=== PATIENT | male | born 1990 | race Caucasian/White ===

== ENCOUNTER → 2021-08-08 09:20 | Outpatient (CLI) | payer OTHER, SELFPAY ==
[2021-08-08 20:38] LABS: COVID19 - ORCAS (NP or Nasal) POSITIVE (Negative)
== END ==
PROVIDERS: PCP Physician Assistant; Referring Provider Family Medicine; Visit Provider Family Medicine
DX: U07.1 COVID-19 (principal); Z20.822 Contact with and (suspected) exposure to COVID-19
CPT/HCPCS: U0003

== ENCOUNTER 2021-12-26 13:58 | Emergency (ER) | payer OTHER, SELFPAY ==
[2021-12-26 14:04] VITALS: BP 139/84; PULSE 67; RESP 16; TEMP 36.7; O2SAT 98; BMI 22.0
--- NOTE | 2021-12-26 15:41 | PC.NURSE ---
unwrapped compression dsg with pa and bleeding profosely. pressure dsg reapplied. unable to fully assess wound due to bleeding. bleeding controlled with pressure dsg.
[2021-12-26] MEDS: LIDO 1%/SOD BICARB 8.4% (10ML) 10 ML SYRINGE INJ (16:17)
--- NOTE | 2021-12-26 16:40 | ED.WOUNDLAC ---
HPI - Wound/Laceration <Kareem Renner PA-C - Last Filed: 12/26/21 19:41> General Chief Complaint: Wound/Laceration Stated Complaint: Lt Thumb Laceration Time Seen by Provider: 12/26/21 15:18 Mode of arrival: Family Vehicle History of Present Illness HPI narrative: Patient is a 31-year-old male presenting to the emergency department today for an evaluation of a left thumb laceration. Patient states that he cut his left thumb with a brand new box knife today while at work and was unable to stop bleeding. He was seen at a clinic at [facility] but they were unable to stop the bleeding and refer the patient to the emergency department. Patient received pain management and update on tetanus while at the clinic. The wound was still bleeding after dressing was taken down with the patient states that he only experiences pain is left on when moving the thumb or when the wound is touched. He denies pain or injury elsewhere. No fevers, chills, chest pain, cough, shortness of breath, nausea, vomiting, diarrhea, constipation, abdominal pain, dysuria, hematuria, numbness and tingling in the upper extremities, or any other concerning symptoms reported. No further concerns were voiced at this time. Related Data Previous Rx's Medication Instructions Recorded cephalexin 500 mg capsule 500 mg PO QID #28 cap 12/26/21 oxycodone 5 mg tablet 5 mg PO BID PRN #15 tab 12/26/21 Allergies Allergy/AdvReac Type Severity Reaction Status Date / Time No Known Drug Allergies Allergy Unverified 12/26/21 09:06 Review of Systems <Kareem Renner PA-C - Last Filed: 12/26/21 19:41> Constitutional Constitutional: Denies chills, Denies fatigue, Denies fever(s), Denies frequent falls, Denies lethargy and Denies weakness Eyes Eyes: Denies loss of vision ENT Ears, Nose, Mouth, and Throat: Denies dizziness and Denies neck pain Cardiovascular Cardiovascular: Denies chest pain, Denies irregular heart rhythm, Denies lightheadedness, Denies palpitations, Denies dyspnea, Denies dyspnea on exertion and Denies orthopnea Respiratory Respiratory: Denies cough, Denies dyspnea, Denies dyspnea on exertion and Denies wheezing Gastrointestinal Gastrointestinal: Denies abdominal pain, Denies change in bowel habits, Denies diarrhea, Denies nausea and Denies vomiting Genitourinary Genitourinary: Denies hematuria, Denies flank pain, Denies urinary incontinence and Denies urinary urgency Musculoskeletal Musculoskeletal: Denies back pain, Denies muscle weakness, Denies neck pain, Denies numbness and Denies tingling Integumentary/Breasts Skin/Breast: Denies pruritus, Denies erythema, Denies rash and Reports wounds (Left thumb laceration) Neurologic Neurologic: Denies behavioral changes, Denies confusion, Denies dizziness, Denies frequent falls, Denies loss of vision, Denies numbness, Denies tingling and Denies weakness Psychiatric Psychiatric: Denies behavioral changes and Denies confusion Endocrine Endocrine: Denies fatigue and Denies palpitations Allergic/Immunologic Allergic/Immunologic: Denies wheezing Patient History <Kareem Renner PA-C - Last Filed: 12/26/21 19:41> Social History Smoking Status: Never smoker Smoking Status: Never smoker Substance Use Type: marijuana Exam <Kareem Renner PA-C - Last Filed: 12/26/21 19:41> Narrative Exam Narrative: GENERAL: 31 year old patient appears stated age. Well-developed patient, in mild distress. HEAD: Atraumatic. Normocephalic. EYES: Pupils equal round and reactive. Extraocular motions intact. No scleral icterus. No injection or drainage. ENT: Nose without bleeding, purulent drainage. Throat without erythema, tonsillar hypertrophy or exudate. Airway patent. NECK: Trachea midline. Non tender CARDIOVASCULAR: Regular rate and rhythm without murmurs, gallops, or rubs. RESPIRATORY: Clear to auscultation. Breath sounds equal bilaterally. No wheezes, rales, or rhonchi. GASTROINTESTINAL: Abdomen soft, non-tender, nondistended. EXTREMITIES: No edema or joint tenderness. BACK: Nontender without deformity or crepitance. No flank tenderness. NEURO: AOx3. SKIN: No rash or erythema of visible areas. Approximately 2 cm avulsion laceration to the lateral aspect of the left thumb. Lateral aspect of the left thumb nail avulsed. Wound actively bleeding with no other signs of purulence discharge. No significant surrounding tissue swelling. No foreign body appears retained within the wound. Initial Vital Signs Initial Vital Signs: Vital Signs Temperature 98.0 F 12/26/21 14:04 Pulse Rate 67 12/26/21 14:04 Respiratory Rate 16 12/26/21 14:04 Blood Pressure 139/84 12/26/21 14:04 Pulse Oximetry 98 12/26/21 14:04 <Esteban Ching DO - Last Filed: 12/28/21 10:23> Initial Vital Signs Initial Vital Signs: Vital Signs Temperature 98.0 F 12/26/21 14:04 Pulse Rate 67 12/26/21 14:04 Respiratory Rate 16 12/26/21 14:04 Blood Pressure 139/84 12/26/21 14:04 Pulse Oximetry 98 12/26/21 14:04 Procedures <SHARA Bernabe Last Filed: 12/26/21 19:41> Laceration Repair Laceration 1: Time of procedure: 16:43 Site: hand (Left thumb) Side (If applicable): left Size (cm): 2 Description: other (Avulsion) Depth: simple, single layer Local Anesthetic: lidocaine 1% Amount of anesthesia used (mL): 5 Pre-repair: wound explored, irrigated extensively and deep structures intact Skin layer closed with: nylon Size (cm): 4-0 Number of sutures: 3 Technique: simple, interrupted Course <SHARA Bernabe Last Filed: 12/26/21 19:41> Course Course Narrative: Hemostasis obtained with tourniquet and 5 mL of 1% buffered lidocaine used for digital block. Three sutures were placed to provide hemostasis. Tourniquet was removed and adequate hemostasis obtained. Patient tolerated procedure well. Orders Ordered: Discontinued Medications Lidocaine/Sodium Bicarbonate (Lido 1%/Sod Bicarb 8.4% (10ml) 10 Ml Syringe) 10 ml INJ NOW ONE Stop: 12/26/21 16:11 Last Admin: 12/26/21 16:17 Dose: 10 ml Documented by: JW Vital Signs Vital signs: Vital Signs - 8 hr 12/26/21 14:04 12/26/21 17:31 Temperature 98.0 F Pulse Rate 67 68 Respiratory Rate 16 14 Blood Pressure 139/84 123/78 Pulse Oximetry 98 100 <DO Gaurav Denise Last Filed: 12/28/21 10:23> Orders Ordered: Discontinued Medications Lidocaine/Sodium Bicarbonate (Lido 1%/Sod Bicarb 8.4% (10ml) 10 Ml Syringe) 10 ml INJ NOW ONE Stop: 12/26/21 16:11 Last Admin: 12/26/21 16:17 Dose: 10 ml Documented by: JW Vital Signs Vital signs: Vital Signs - 8 hr 12/26/21 14:04 12/26/21 17:31 Temperature 98.0 F Pulse Rate 67 68 Respiratory Rate 16 14 Blood Pressure 139/84 123/78 Pulse Oximetry 98 100 MDM - Wound/Laceration <Kareem Renner PA-C - Last Filed: 12/26/21 19:41> MDM Narrative Medical decision making narrative: Differential diagnosis considered but not limited to superficial skin laceration versus deep tissue laceration versus tendon rupture. Discussed plan at to provide suturing to achieve goal of hemostasis. I informed the patient that we are not attempting to close the wound but merely stop bleeding. Patient states that he is comfortable with this plan. Three sutures were placed to provide hemostasis and the patient tolerated the procedure well. Chlorhexidine swabs were used to clean the wound with extensive irrigation with normal saline provided after cleaning. I urged the patient to keep the area clean and dry and covered. Sutures can be removed in 7 days after being evaluated by a medical professional. I discussed wound care instructions with patient prior to discharge. He states that this time she is comfortable being discharged home and is stable for discharge. Strict return precautions were discussed with the patient prior to discharge. Discharge Plan Departure Patient Disposition: Home Clinical Impression: Laceration of left thumb Instructions: DI for Laceration Repair Activity Restrictions/Additional Instructions: *You have been diagnosed with left thumb laceration *What to do: *Please continue to take your regular medications as directed. [X] New medication prescriptions sent to your pharmacy: [facility] [place] - Keflex [X] New medication written as a paper prescription - Oxycodone [ ] No new medications given You were evaluated in the emergency department today for a left thumb laceration. Hemostasis was obtained using 3 sutures. It is important to keep the laceration site clean and dry. The sutures need to remain in place for at least 7 days. Please ensure that you are having the wound evaluated by primary care or urgent care prior to the removal of the sutures. I have sent a prescription over to your preferred pharmacy for an antibiotic (Keflex). Ensure that you complete the entire course of this antibiotic and take as directed. Do not hesitate to return to the emergency department if you experience fever, worsening pain, swelling around the laceration site, discharge from the laceration site, or any other concerning symptoms. *Please follow up with your primary care provider in 2-3 days, call for an appointment. Let them know you were seen in the Emergency Department and that we ask that you be seen in follow up. We will electronically transmit a record of today's note if your PCP is in our system *If you do not have a primary care provider please contact the [facility] Resource line at [phone]. They will ask some questions about your medical history and help get you set up with a doctor in the community. *Return to Emergency Department if you should have any new, worsening or concerning symptoms, such as fever greater than 101 F, shaking chills, worsening pain, persistent vomiting or other bothersome symptoms. Prescriptions: New cephalexin 500 mg capsule 500 mg PO QID Qty: 28 0RF oxycodone 5 mg tablet 5 mg PO BID PRN (Reason: pain) Qty: 15 0RF Referrals: Tatiana Garza PA-C [Primary Care Provider] - <Esteban Ching DO - Last Filed: 12/28/21 10:23> Cosign ED Attending Coskalpeshature Attestation: I was immediately available in the department for consultation. This documentation has been reviewed and I agree with assessment and plan. Supervised by Esteban Ching DO
[2021-12-26 17:31] VITALS: BP 123/78; PULSE 68; RESP 14; O2SAT 100
== END 2021-12-26 17:32 | disposition home or self-care (01) ==
PROVIDERS: Emergency Provider Physician Assistant; PCP Physician Assistant
DX: S61.112A Laceration without foreign body of left thumb with damage to nail, initial encounter (principal); W26.8XXA Contact with other sharp object(s), not elsewhere classified, initial encounter; Y99.0 Civilian activity done for income or pay
CPT/HCPCS: 12001; 99282; 99283

== ENCOUNTER 2022-01-07 09:55 | Emergency (ER) | payer OTHER, SELFPAY ==
[2022-01-07 10:02] VITALS: BP 138/84; PULSE 67; RESP 14; TEMP 36.2; O2SAT 99
--- NOTE | 2022-01-07 10:04 | ED.SKABFB ---
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 It has healed well and he is neurovascularly intact Related Data Home Medications Medication Instructions Recorded Confirmed No Known Home Medications 01/07/22 01/07/22 Allergies Allergy/AdvReac Type Severity Reaction Status Date / Time No Known Drug Allergies Allergy Unverified 12/26/21 09:06 Patient History Social History Smoking Status: Former smoker Smoking Status: Former smoker alcohol intake frequency: 0-2 drinks per day Substance Use Type: marijuana Exam Initial Vital Signs Initial Vital Signs: Vital Signs Temperature 97.2 F L 01/07/22 10:02 Pulse Rate 67 01/07/22 10:02 Respiratory Rate 14 01/07/22 10:02 Blood Pressure 138/84 01/07/22 10:02 Pulse Oximetry 99 01/07/22 10:02 General: Alert appropriate in no acute distress Respiratory: Able to speak in full sentences, no obvious respiratory distress Skin: No obvious rashes, warm and dry Neurologic: Grossly intact no obvious asymmetries or abnormalities Psych: appropriate insight and affect, cooperative Extremity: Left thumb with healing wound, 3 sutures were removed. A bit of eschar over the area and there still remains a bit of secondary intention for the wound to be completely healed. Bacitracin and a Band-Aid were applied. Course Vital Signs Vital signs: Vital Signs - 8 hr 01/07/22 10:02 Temperature 97.2 F L Pulse Rate 67 Respiratory Rate 14 Blood Pressure 138/84 Pulse Oximetry 99 MDM - Skin/Abscess/Foreign Bdy MDM Narrative Medical decision making narrative: Presents for suture removal left thumb. Three sutures removed. Wound is healing nicely Discharge Plan Departure Patient Disposition: Home Clinical Impression: Encounter for removal of sutures Instructions: DI for Suture Removal Activity Restrictions/Additional Instructions: Your wound is healing nicely but will still need additional time to completely heal. Using topical antibiotic ointment will be helpful. I would encourage using a Band-Aid until the area is no longer sensitive to touch. If you develop any signs or symptoms of infection such as increasing pain, redness, drainage you do need to be seen and evaluated again. Prescriptions: No Action cephalexin 500 mg capsule 500 mg PO QID Qty: 28 0RF Referrals: Tatiana Garza PA-C [Primary Care Provider] -
[2022-01-07] MEDS: BACITRACIN OINT 0.9 GM PCKT 1 APPLIC TOP (10:08)
== END 2022-01-07 10:17 | disposition home or self-care (01) ==
PROVIDERS: Emergency Provider Emergency Medicine; PCP Physician Assistant
DX: Z48.02 Encounter for removal of sutures (principal)
CPT/HCPCS: 99282

== ENCOUNTER → 2023-12-25 06:30 | Outpatient (CLI) | payer SELFPAY | PROVIDERS: PCP Physician Assistant; Visit Provider Physician Assistant | DX: K92.1 Melena (principal) | CPT/HCPCS: 87177 ==

== ENCOUNTER → 2023-12-26 11:02 | Outpatient (CLI) | payer SELFPAY ==
[2023-12-26 20:47] LABS: HEMOLYSIS < 15 (0-50)
[2023-12-26 20:48] LABS: Add Manual Diff / Slide Review NO; Basophils Absolute Auto 100 /uL (0-100); Basophils Percent Auto 0.9 % (0-2); Eosinophils Absolute Auto 100 /uL (0-450); Eosinophils Percent Auto 0.9 % (2-4); Hematocrit 44.2 % (41-53); Lymphocytes Absolute Auto 2600 /uL (1100-4500); Lymphocytes Percent Auto 30.4 % (25-40); Mean Corpuscular HGB Conc 33.8 % (30-36); Mean Corpuscular Hemoglobin 30.4 PG (26-34); Mean Corpuscular Volume 89.9 fL (80-100); Monocytes Absolute Auto 600 /uL (0-900); Monocytes Percent Auto 7.1 % (3-14); Neutrophils Absolute Auto 5200 /uL (1500-7000); Neutrophils Percent Auto 60.7 % (50-75); Platelet Count 313 X10^3/uL (150-400); Red Blood Cell Count 4.92 X10^6/uL (4.5-5.9); Red Cell Distribution Width 13.2 % (11.6-14.8); White Blood Cell Count 8.6 X10^3/uL (4.5-11.0)
[2023-12-26 21:00] LABS: Alanine Aminotransferase 19 IU/L (<50); Albumin 4.6 g/dL (3.5-5.0); Albumin Globulin Ratio 1.6 (1.0-2.8); Alkaline Phosphatase 48 U/L (38-126); Aspartate Aminotransferase 28 IU/L (17-59); BUN Creatinine Ratio 20.9 (6-22); Bilirubin Total 0.7 mg/dL (0.2-1.3); Blood Urea Nitrogen 18 mg/dL (9-20); Calcium 10.2 mg/dL (8.4-10.2); Carbon Dioxide 29 mmol/L (22-32); Chloride 105 mmol/L (98-107); Estimated Glomerular Filt Rate > 60 mL/min (>60); Globulin 2.8 g/dL (1.7-4.1); Glucose 95 mg/dL (70-100); Lipase 250 U/L (23-300); Potassium 4.1 mmol/L (3.4-5.1); Sodium 140 mmol/L (137-145); Total Protein 7.4 g/dL (6.3-8.2)
[2023-12-26 21:07] LABS: TSH w/ Reflex to FT4 0.76 uIU/mL (0.47-4.68)
[2023-12-26 21:48] LABS: Hep C Virus Ab w/Reflex Quant NEGATIVE s/c (NEGATIVE); Hepatitis B Surface Antigen NEGATIVE s/c (NEGATIVE)
[2023-12-27 12:31] LABS: Vitamin B12 861 pg/mL (239-931)
== END ==
PROVIDERS: PCP Physician Assistant; Visit Provider Physician Assistant
DX: R63.4 Abnormal weight loss (principal); K92.1 Melena; Z77.111 Contact with and (suspected) exposure to water pollution
CPT/HCPCS: 80053; 82607; 83690; 84443; 85025; 86803; 87340

== ENCOUNTER → 2024-09-23 16:10 | Outpatient (CLI) | payer SELFPAY | PROVIDERS: PCP Physician Assistant; Visit Provider Physician Assistant Medical | DX: R31.9 Hematuria, unspecified (principal) | CPT/HCPCS: 87086 ==

== ENCOUNTER → 2024-09-24 13:47 | Outpatient (CLI) | payer SELFPAY ==
[2024-09-24 19:44] LABS: Add Manual Diff / Slide Review NO; Basophils Absolute Auto 100 /uL (0-100); Basophils Percent Auto 0.7 % (0-2); Eosinophils Absolute Auto 0 /uL (0-450); Eosinophils Percent Auto 0.2 % (2-4); Hematocrit 48.4 % (41-53); Hemoglobin 16.4 g/dL (13.5-17.5); Lymphocytes Absolute Auto 2800 /uL (1100-4500); Lymphocytes Percent Auto 22.6 % (25-40); Mean Corpuscular HGB Conc 33.9 % (30-36); Mean Corpuscular Hemoglobin 29.9 PG (26-34); Mean Corpuscular Volume 88.1 fL (80-100); Monocytes Absolute Auto 900 /uL (0-900); Monocytes Percent Auto 6.9 % (3-14); Neutrophils Absolute Auto 8700 /uL (1500-7000); Neutrophils Percent Auto 69.6 % (50-75); Platelet Count 339 X10^3/uL (150-400); Red Blood Cell Count 5.49 X10^6/uL (4.5-5.9); Red Cell Distribution Width 13.2 % (11.6-14.8); White Blood Cell Count 12.6 X10^3/uL (4.5-11.0)
[2024-09-24 21:51] LABS: Adenovirus F 40/41 Not Detected (Not Detect); Astrovirus Not Detected (Not Detect); Campylobacter Not Detected (Not Detect); Clostridium difficile toxin AB Not Detected (Not Detect); Cryptosporidium Not Detected (Not Detect); Cyclospora cayetanensis Not Detected (Not Detect); Entamoeba histolytica Not Detected (Not Detect); Enteroaggregative E.coli Not Detected (Not Detect); Enteropathogenic E.coli Not Detected (Not Detect); Enterotoxigenic E.coli It/st Not Detected (Not Detect); Giardia lamblia Not Detected (Not Detect); Norovirus GI/GII Detected (Not Detect); Plesiomonsa shigelloides Not Detected (Not Detect); Rotavirus A Not Detected (Not Detect); Salmonella Not Detected (Not Detect); Sapovirus Not Detected (Not Detect); Shiga-like toxin-prod E.coli Not Detected (Not Detect); Shigella/Enteroinvasive E.coli Not Detected (Not Detect); Vibrio Not Detected (Not Detect); Vibrio cholerae Not Detected (Not Detect); Yersinia enterocolitica Not Detected (Not Detect)
== END ==
PROVIDERS: PCP Physician Assistant; Visit Provider Physician Assistant Medical
DX: R10.9 Unspecified abdominal pain (principal); R11.10 Vomiting, unspecified; R19.7 Diarrhea, unspecified
CPT/HCPCS: 85025; 87507

== ENCOUNTER → 2025-08-19 13:58 | Outpatient (CLI) | payer SELFPAY ==
[2025-08-19 18:57] LABS: Add Manual Diff / Slide Review NO; Hematocrit 49.9 % (41-53); Hemoglobin 17.2 g/dL (13.5-17.5); Lymphocytes Absolute Auto 3900 /uL (1100-4500); Mean Corpuscular HGB Conc 34.4 % (30-36); Mean Corpuscular Hemoglobin 29.9 PG (26-34); Mean Corpuscular Volume 87.0 fL (80-100); Platelet Count 354 X10^3/uL (150-400)
[2025-08-19 19:01] LABS: Appearance Urine UA CLEAR; Bilirubin Urine UA 1+ (NEGATIVE); Color Urine UA YELLOW; Glucose Urine UA NEGATIVE (Negative); Ketones Urine UA NEGATIVE (NEGATIVE); Leukocyte Esterase Urine UA NEGATIVE (NEGATIVE); Nitrite Urine UA NEGATIVE (Negative); Occult Blood Urine UA 2+ (Negative); Protein Urine UA 1+ (Negative); Specific Gravity Urine UA 1.025 (1.000-1.035); Urobilinogen Urine UA 0.2 E.U./dL (0.2); pH Urine UA 6.0 (4.5-8.0)
[2025-08-19 19:05] LABS: Alanine Aminotransferase 48 IU/L (<50); Albumin 5.3 g/dL (3.5-5.0); Albumin Globulin Ratio 1.6 (1.0-2.8); Alkaline Phosphatase 72 U/L (38-126); Blood Urea Nitrogen 22 mg/dL (9-20); Calcium 10.3 mg/dL (8.4-10.2); Carbon Dioxide 21 mmol/L (22-32); Chloride 101 mmol/L (98-107); Estimated Glomerular Filt Rate > 60 mL/min (>60); Globulin 3.3 g/dL (1.7-4.1); Glucose 106 mg/dL (70-99); HEMOLYSIS < 15 (0-50); Potassium 3.9 mmol/L (3.4-5.1); Sodium 141 mmol/L (137-145); Total Protein 8.6 g/dL (6.3-8.2)
[2025-08-19 19:16] LABS: Ictotest Urine Negative (Negative)
[2025-08-19 19:17] LABS: Culture Indicated Urine Cult Not Indicated
== END ==
PROVIDERS: PCP Family Medicine; Visit Provider Family Medicine
DX: K92.1 Melena (principal); R10.9 Unspecified abdominal pain; R31.9 Hematuria, unspecified
CPT/HCPCS: 80053; 81001; 85025